=== PATIENT | male | born 1965 | race African-American/Black ===

== ENCOUNTER 2019-12-23 23:00 | Emergency (ER) | payer MEDICAID ==
[~2019-12-23] VITALS: Ht 175.3 cm; Wt 85.0 kg
[2019-12-23] MEDS ORDERED: SODIUM CHLORIDE 0.9% 1,000 ML IV ONE (23:15)
[2019-12-23 23:43] LABS: BASOPHILS % 0.4 % (0.0-2.0); EOSINOPHILS % 1.6 % (0.0-5.0); HEMATOCRIT. 41.3 % (42.0-52.0); HEMOGLOBIN. 14.1 g/dL (14.0-18.0); LYMPHOCYTES % 18.4 % (20.0-50.0); MEAN CORPUSCULAR HEMOGLOBIN 31.9 pg (28.0-32.0); MEAN CORPUSCULAR VOLUME 93.7 fL (80.0-94.0); MEAN PLATELET VOLUME 8.5 fl (7.4-10.4); MONOCYTES % 4.5 % (2.0-8.0); NEUTROPHILS % 75.1 % (40.0-76.0); PLATELET 258 x1000/uL (130-400); RED CELL DISTRIBUTION WIDTH 14.3 % (11.6-14.6)
[2019-12-23 23:49] LABS: CHLORIDE 105 mEq/L (98-107)
[2019-12-24] MEDS ORDERED: INSULIN LISPRO 100 UNITS/ML SUBCUT NR (01:15)
[2019-12-24 02:10] VITALS: BP 155/68
== END 2019-12-24 02:11 | disposition home or self-care (01) ==
LOC: ER 23:00
DX: E11.65 Type 2 diabetes mellitus with hyperglycemia (principal)
CPT/HCPCS: 36415; 71045; 80053; 80320; 82962; 83880; 84484; 85025; 93005; 96360; 96361; 96372; 99285; J1815; J7030; G0480

== ENCOUNTER 2020-11-16 01:59 | Emergency (ER) | payer MEDICAID ==
[~2020-11-16] VITALS: Ht 188 cm; Wt 88.0 kg
[2020-11-16] MEDS ORDERED: INSULIN REGULAR (HUMULIN R) 300UNITS/3ML VIAL IV ONE (03:00)
[2020-11-16] MEDS ORDERED: SODIUM CHLORIDE 0.9% 1,000 ML IV ONE ×2 (03:00)
[2020-11-16] MEDS ORDERED: METFORMIN HCL 850MG TABLET PO ONE (03:00)
[2020-11-16] MEDS ORDERED: METFORMIN HCL 500MG TABLET PO ONE (03:00)
[2020-11-16 03:18] LABS: CHLORIDE 104 mEq/L (98-107)
[2020-11-16 03:32] LABS: CLARITY URINE CLEAR (CLEAR); COLOR URINE YELLOW (YELLOW); KETONES URINE 1+ (NEGATIVE); LEUKOCYTE ESTERASE URINE NEGATIVE (NEGATIVE); NITRITE URINE NEGATIVE (NEGATIVE); OCCULT BLOOD URINE NEGATIVE (NEGATIVE); PROTEIN URINE TRACE (NEGATIVE); SPECIFIC GRAVITY URINE 1.047 (1.005-1.030)
[2020-11-16 06:40] VITALS: BP 121/62
== END 2020-11-16 06:58 | disposition home or self-care (01) ==
LOC: EDUNIT# 01:59 → ER 02:42
DX: E11.65 Type 2 diabetes mellitus with hyperglycemia (principal); I10 Essential (primary) hypertension; Z79.4 Long term (current) use of insulin; Z98.890 Other specified postprocedural states
CPT/HCPCS: 36415; 80048; 81003; 82962; 93005; 96361; 96374; 99285; J1815; Z7610

== ENCOUNTER 2021-05-30 21:31 | Emergency (ER) | payer MEDICAID ==
[~2021-05-30] VITALS: Ht 167.6 cm; Wt 72.0 kg
[2021-05-30] MEDS ORDERED: ONDANSETRON 4MG ODT PO ONE (22:15)
[2021-05-31 02:39] VITALS: BP 138/83
== END 2021-05-31 02:42 | disposition home or self-care (01) ==
LOC: ER 21:31
DX: T40.2X1A Poisoning by other opioids, accidental (unintentional), initial encounter (principal); Y92.9 Unspecified place or not applicable; F19.10 Other psychoactive substance abuse, uncomplicated; I49.9 Cardiac arrhythmia, unspecified
CPT/HCPCS: 93005; 99291; Q0162